=== PATIENT | female | born 2000 | race Caucasian/White ===

== ENCOUNTER 2023-07-03 13:00 | Outpatient (RCR) | payer OTHER, SELFPAY | END 2023-10-01 08:20 | disposition home or self-care (01) | PROVIDERS: PCP Surgery; Visit Provider Dentist General Practice | DX: M26.609 Unspecified temporomandibular joint disorder, unspecified side (principal); M79.18 Myalgia, other site; R51.9 Headache, unspecified; Z51.89 Encounter for other specified aftercare | CPT/HCPCS: 97110; 97140; 97161 ==

== ENCOUNTER 2025-07-07 14:06 | Outpatient (CLI) | payer BC, SELFPAY | END 2025-07-07 14:07 | disposition home or self-care (01) | LOC: NFLDREF 07-13 19:26 | PROVIDERS: PCP Surgery; Referring Provider Surgery; Visit Provider Obstetrics & Gynecology | DX: R33.9 Retention of urine, unspecified (principal) | CPT/HCPCS: 87086 ==